=== PATIENT | male | born 1955 | race Caucasian/White ===

== ENCOUNTER 2021-02-11 10:03 | Day surgery (SDC) | payer OTHER, SELFPAY ==
[2021-02-03 10:30] VITALS: BMI 27.2
[2021-02-11 10:48] VITALS: BP 134/82; PULSE 59; RESP 16; TEMP 36.3; O2SAT 95
[2021-02-11] MEDS: Lactated Ringers 500 ML 20 ML IVCONT (11:00)
--- NOTE | 2021-02-11 11:07 | P.CONAN_ITS ---
[facility] Past Medical History Medical History COVID-19 vaccine series completed Elevated cholesterol Rosacea Functional capacity: independent ambulation Family History Family history of problems with anesthesia: No Surgical History Surgical History H/O colonoscopy Hx of arthroscopy of right knee History of Problems with Anesthesia: No Social History Social History Are you a primary acute care certified nursing assistant to a significant other at home: No Do you presently have visiting nurse or other home services: No Patient Tobacco Use Status: Never used Tobacco Use of substances other than those prescribed or required for medical reasons: Yes Substance Use Type Other:: advised to hold pre-op Substance Use Frequency: Occasionally Have you been hit, kicked, punched, or otherwise hurt by someone within the past year? If so, by whom?: No Are you DNR?: No Advance Directives: No Advance Directives Information Provided: Yes (as above noted) Advance Directives on File: No Recently lost weight without trying: No Eating poorly because of decreased appetite: No Nutrition Risks: No Nutritional Risk Poor oral hygiene: No (2 implants-upper right & lower left) Meds Allergies Allergy/AdvReac Type Severity Reaction Status Date / Time No Known Allergies Allergy Verified 02/03/21 10:10 Home Medications Medication Instructions Recorded Confirmed Last Taken Type diclofenac sodium 75 mg 75 mg PO BID PRN 02/03/21 02/03/21 Unknown History tablet,delayed release doxycycline hyclate 100 mg capsule 1 cap PO BID 02/03/21 02/03/21 Unknown History multivitamin 1 tab PO DAILY 02/03/21 02/03/21 Unknown History sildenafil 100 mg tablet 50 mg PO DAILY PRN 02/03/21 02/03/21 Unknown History Exam Exam Date and Time: February 11, 2021 1107 Height,Weight and Vital Signs: Height 5 ft 8 in Weight 81.193 kg Last Vital Signs Temp 97.4 F 02/11/21 10:48 Pulse 59 02/11/21 10:48 Resp 16 02/11/21 10:48 BP 134/82 02/11/21 10:48 Pulse Ox 95 02/11/21 10:48 Airway Mallampati Class: II TM Dist: >3cm Heart: RRR Lungs: CTA Assessment and Plan Final Anesthetic Review Family History of Problems with Anesthesia: No History of Problems with Anesthesia: No ASA Class: II Final Preanesthetic Review: No Changes in Pt Med Stat and Consent Obtained/Reviewed Anesthetic Plan Anesthetic Plan: MAC: Disposition: Standard PACU
--- NOTE | 2021-02-11 11:09 | HO.ANESPROP2 ---
[facility] Past Medical History Medical History COVID-19 vaccine series completed Elevated cholesterol Rosacea Functional capacity: independent ambulation Family History Family history of problems with anesthesia: No Surgical History Surgical History H/O colonoscopy Hx of arthroscopy of right knee History of Problems with Anesthesia: No Social History Social History Are you a primary ocular care aide to a significant other at home: No Do you presently have visiting nurse or other home services: No Patient Tobacco Use Status: Never used Tobacco Use of substances other than those prescribed or required for medical reasons: Yes Substance Use Type Other:: advised to hold pre-op Substance Use Frequency: Occasionally Have you been hit, kicked, punched, or otherwise hurt by someone within the past year? If so, by whom?: No Are you DNR?: No Advance Directives: No Advance Directives Information Provided: Yes (as above noted) Advance Directives on File: No Recently lost weight without trying: No Eating poorly because of decreased appetite: No Nutrition Risks: No Nutritional Risk Poor oral hygiene: No (2 implants-upper right & lower left) Meds Allergies Allergy/AdvReac Type Severity Reaction Status Date / Time No Known Allergies Allergy Verified 02/03/21 10:10 Active Medications: Current Medications Lactated Ringer's (Lr) 500 mls @ 20 mls/hr IVCONT .Q24H [facility] Home Medications Medication Instructions Recorded Confirmed Last Taken Type diclofenac sodium 75 mg 75 mg PO BID PRN 02/03/21 02/03/21 Unknown History tablet,delayed release doxycycline hyclate 100 mg capsule 1 cap PO BID 02/03/21 02/03/21 Unknown History multivitamin 1 tab PO DAILY 02/03/21 02/03/21 Unknown History sildenafil 100 mg tablet 50 mg PO DAILY PRN 02/03/21 02/03/21 Unknown History Exam Exam Date and Time: February 11, 2021 1109 Height,Weight and Vital Signs: Height 5 ft 8 in Weight 81.193 kg Last Vital Signs Temp 97.4 F 02/11/21 10:48 Pulse 59 02/11/21 10:48 Resp 16 02/11/21 10:48 BP 134/82 02/11/21 10:48 Pulse Ox 95 02/11/21 10:48 Assessment and Plan Final Anesthetic Review Family History of Problems with Anesthesia: No History of Problems with Anesthesia: No
--- NOTE | 2021-02-11 11:28 | MHC.SHP ---
Pre-Procedural Eval Section A Date of Service: 02/11/21 The patient is an INPATIENT: No Changes since office visit: No Cold of Flu in the past 2 weeks, No New Medical Problems, No Changes in Medication and No Patient answered all questions The History & Physical has been completed within 30 days and I have reviewed it.: Yes Section B Chief Complaint: screening Allergies: Allergies Allergy/AdvReac Type Severity Reaction Status Date / Time No Known Allergies Allergy Verified 02/03/21 10:10 Plan I have reviewed the history and physical and performed a pertinent physical examination on my patient. No changes have occurred unless specified.
[2021-02-11 12:05] VITALS: BP 88/60; PULSE 58; RESP 16; TEMP 36.4; O2SAT 95
--- NOTE | 2021-02-11 12:08 | P.BOP_ITS ---
Brief Operative Note Date of Service: 02/11/21 Pre-op diagnosis: screening Post-op diagnosis: same (colon polyps) Procedure: colonoscopy Surgeon: Jerel Garcia Anesthesia: MAC Was an Airport Attendant used for this Procedure?: No Estimated blood loss (mL): 2 Pathology: other (polyps icv, r colon x2, 60 cm) Condition: stable Disposition: PACU
[2021-02-11 12:20] VITALS: BP 98/61; PULSE 54; RESP 16; O2SAT 96
[2021-02-11 12:35] VITALS: BP 121/77; PULSE 59; RESP 16; TEMP 36.6; O2SAT 98
--- NOTE | 2021-02-11 12:47 | OP_ITS ---
SURGEON: Jerel Garcia MD INDICATIONS: Colon cancer screening and prior history of colon polyps. PREOPERATIVE DIAGNOSIS: POSTOPERATIVE DIAGNOSIS: PROCEDURE PERFORMED: Colonoscopy to the terminal ileum with biopsy and snare polypectomy. ESTIMATED BLOOD LOSS: COMPLICATIONS: ANESTHESIA: ASSISTANTS: SPECIMENS: MEDICATIONS: Monitored anesthesia care. DESCRIPTION OF PROCEDURE: History and physical performed. The risks and benefits of the procedure were explained to the patient. Informed consent was obtained. The patient was placed in the left lateral decubitus position. A digital rectal exam was performed and was found to be normal. The Olympus pediatric video colonoscope was introduced into the rectum and advanced to the cecum without difficulty. The cecum was identified by transillumination, palpation, and identification of ileocecal valve. Examination was performed. The scope was removed. He tolerated the procedure well and was transferred to recovery area in stable condition. FINDINGS: The terminal ileum was normal. The visualized colonic mucosa was normal. The quality of the prep was good. There was a less than 5 mm sessile polyp involving the ileocecal valve, which was removed with a biopsy forceps. In the right colon, there were 2 polyps 1 measuring 7 mm that was removed with a snare, second measuring less than 5 mm which was removed with a biopsy forceps. A final 6mm polyp was removed with a snare at 60 cm. Retroflexed examination showed internal hemorrhoids. IMPRESSION: Colon polyps. RECOMMENDATION: Follow up the biopsy results. MD TIFFANIE Guadarrama/RASHEEDA / [id number] MTDD
--- NOTE | 2021-02-11 14:06 | HO.POSTANES ---
Post Anesthesia Evaluation Post Anesthesia Evaluation Vital Signs: Vital Signs Temp Pulse Resp BP Pulse Ox 02/11/21 12:35 97.8 F 59 16 121/77 98 02/11/21 12:20 54 16 98/61 96 02/11/21 12:05 97.5 F 58 16 88/60 L 95 02/11/21 10:48 97.4 F 59 16 134/82 95 Anesthesia: Monitored Pain Control: Satisfactory Nausea/Vomiting: None Hydration: Adequate Anesthesia-Related Issues: No Anes. Related Issues
== END 2021-02-11 13:22 | disposition home or self-care (01) ==
PROVIDERS: Visit Provider Internal Medicine Gastroenterology
PROC: 0DJD8ZZ Inspection of Lower Intestinal Tract, Via Natural or Artificial Opening Endoscopic (ICD-10-PCS; CPT 45378; principal; 2021-02-11 11:20)
DX: Z12.11 Encounter for screening for malignant neoplasm of colon (principal); Z86.010 Personal history of colon polyps; D12.2 Benign neoplasm of ascending colon; D12.4 Benign neoplasm of descending colon; D12.0 Benign neoplasm of cecum; K64.8 Other hemorrhoids; E78.00 Pure hypercholesterolemia, unspecified; L71.9 Rosacea, unspecified; Z79.899 Other long term (current) drug therapy; Z79.1 Long term (current) use of non-steroidal anti-inflammatories (NSAID)
CPT/HCPCS: 45385; 45380; 88305

== ENCOUNTER 2024-02-27 12:26 | Day surgery (SDC) | payer OTHER, SELFPAY ==
--- NOTE | 2024-02-26 09:03 | P.CONAN_ITS ---
Documented by User: Rosi Prado NP 02/26/24 09:03 HPI - Anesthesia Eval Consult details Narrative: 68yo M for Upper Endoscopy and Colonoscopy [facility] Past Medical History Medical History COVID-19 vaccine series completed Elevated cholesterol Rosacea Family History Family history of problems with anesthesia: No Surgical History Surgical History H/O colonoscopy Hx of arthroscopy of right knee History of Problems with Anesthesia: No Social History Social History Are you a primary customer care manager to a significant other at home: No Do you presently have visiting nurse or other home services: No Patient Tobacco Use Status: Never used Tobacco Use of substances other than those prescribed or required for medical reasons: Yes Have you been hit, kicked, punched, or otherwise hurt by someone within the past year? If so, by whom?: No Are you DNR?: No Advance Directives: No Advance Directives Information Provided: Yes Recently lost weight without trying: No Meds Allergies Allergy/AdvReac Type Severity Reaction Status Date / Time No Known Allergies Allergy Verified 02/03/21 10:10 Home Medications ?Medication ?Instructions ?Recorded ?Confirmed ?Last Taken ?Type diclofenac sodium 75 mg 75 mg PO BID PRN Pain 02/03/21 02/03/21 Unknown History tablet,delayed release doxycycline hyclate 100 mg capsule 1 cap PO BID 02/03/21 02/03/21 Unknown History multivitamin 1 tab PO DAILY 02/03/21 02/03/21 Unknown History sildenafil 100 mg tablet 50 mg PO DAILY PRN Erectile 02/03/21 02/03/21 Unknown History Dysfunction Assessment and Plan Assessment Anesthesia Assessment: Chart Reviewed Final Anesthetic Review Family History of Problems with Anesthesia: No History of Problems with Anesthesia: No Documented by User: David Talbert MD 03/03/24 07:41 [facility] Past Medical History Medical History COVID-19 vaccine series completed Elevated cholesterol Rosacea Surgical History Surgical History H/O colonoscopy Hx of arthroscopy of right knee Social History Social History Are you a primary customer care manager to a significant other at home: No Do you presently have visiting nurse or other home services: No Patient Tobacco Use Status: Never used Tobacco Use of substances other than those prescribed or required for medical reasons: Yes Have you been hit, kicked, punched, or otherwise hurt by someone within the past year? If so, by whom?: No Are you DNR?: No Advance Directives: No Advance Directives Information Provided: Yes Recently lost weight without trying: No Meds Allergies Allergy/AdvReac Type Severity Reaction Status Date / Time No Known Allergies Allergy Verified 02/03/21 10:10 Home Medications ?Medication ?Instructions ?Recorded ?Confirmed ?Last Taken ?Type diclofenac sodium 75 mg 75 mg PO BID PRN Pain 02/03/21 02/03/21 Unknown History tablet,delayed release doxycycline hyclate 100 mg capsule 1 cap PO BID 02/03/21 02/03/21 Unknown History multivitamin 1 tab PO DAILY 02/03/21 02/03/21 Unknown History sildenafil 100 mg tablet 50 mg PO DAILY PRN Erectile 02/03/21 02/03/21 Unknown History Dysfunction Exam Airway Mallampati Class: II TM Dist: <=3cm Neck ROM: Full Heart: ok Lungs: ok Assessment and Plan Assessment Anesthesia Assessment: Anesthesia Plan Discussed Final Anesthetic Review NPO: Yes ASA Class: II Final Preanesthetic Review: No Changes in Pt Med Stat, Meds/Allgs Chart Reviewed, Consent Obtained/Reviewed and Anes Risks/Benef Reviewed Patient Risk: Low Procedure Risk: Intermediate Anesthetic Plan Anesthetic Plan: Agree w/ Assess. and Plan and TIVA Disposition: Standard PACU
[2024-02-27 13:23] VITALS: BP 143/79; PULSE 61; RESP 16; TEMP 36.7; O2SAT 98; BMI 25.2
[2024-02-27] MEDS: Lactated Ringers 1,000 ML 100 ML IVCONT (13:33)
[2024-02-27 15:03] VITALS: BP 99/68; PULSE 64; RESP 17; TEMP 36.6; O2SAT 94
[2024-02-27 15:27] VITALS: BP 107/74; PULSE 60; RESP 17; TEMP 36.1; O2SAT 99
--- NOTE | 2024-02-27 17:10 | OP_ITS ---
DATE OF SERVICE: 02/27/2024 SURGEON: Jerel Garcia MD INDICATIONS: 1. Gastroesophageal reflux disease. 2. Colon cancer screening. PREOPERATIVE DIAGNOSIS: POSTOPERATIVE DIAGNOSIS: PROCEDURE PERFORMED: Upper endoscopy with biopsy, colonoscopy to the terminal ileum with biopsy. ESTIMATED BLOOD LOSS: COMPLICATIONS: ANESTHESIA: Monitored anesthesia care. ASSISTANTS: SPECIMENS: DESCRIPTION OF PROCEDURE: A history and physical was performed. The risks and benefits of the procedure were explained to the patient. Informed consent was obtained. The patient was placed in the left lateral decubitus position. A digital rectal exam was performed and was found to be normal. The Olympus video gastroscope was introduced into the esophagus, stomach, and duodenum. Examination was performed. The scope was removed. He was repositioned for colonoscopy. The Olympus pediatric video colonoscope was introduced into the rectum and advanced to the cecum. The cecum was identified by transillumination, palpation, identification of ileocecal valve. Examination was performed. The scope was removed. He tolerated both procedures well, was returned to recovery area in stable condition. FINDINGS: Upper endoscopy: 1. Esophagus. The esophagus showed 2 erosions just above the EG junction measuring 1 cm and 1.5 cm. In the esophagus at 28 cm was a 3 mm nodule, which was biopsied and removed. 2. Stomach: Stomach showed no evidence of masses, ulcers, or polyps. Antral biopsies were obtained to evaluate for H pylori. 3. Duodenum. The bulb and 2nd portion were normal. Colonoscopy: The terminal ileum was examined and appeared normal. The visualized colonic mucosa was normal. In the cecum was a 3 mm polyp, which was removed with a biopsy forceps. There was some stool coating mucosa in the cecum, which was washed and suctioned. No other polyps were identified. Retroflexed examination showed moderate-sized internal hemorrhoids. IMPRESSION: 1. Erosive esophagitis. 2. Esophageal nodule. 3. Colon polyp. RECOMMENDATION: Follow up the biopsy results. MD TIFFANIE Guadarrama/RASHEEDA / [id number]
== END 2024-02-27 15:46 | disposition home or self-care (01) ==
PROVIDERS: PCP Internal Medicine; Visit Provider Internal Medicine Gastroenterology
PROC: (CPT 45380; principal; 2024-02-27 14:40)
DX: Z12.11 Encounter for screening for malignant neoplasm of colon (principal); Z86.0101 Personal history of adenomatous and serrated colon polyps; K63.5 Polyp of colon; K57.30 Diverticulosis of large intestine without perforation or abscess without bleeding; K64.8 Other hemorrhoids; K21.9 Gastro-esophageal reflux disease without esophagitis; K22.81 Esophageal polyp; K20.80 Other esophagitis without bleeding; E78.5 Hyperlipidemia, unspecified; L71.9 Rosacea, unspecified; Z79.899 Other long term (current) drug therapy; Z79.1 Long term (current) use of non-steroidal anti-inflammatories (NSAID); Z98.890 Other specified postprocedural states
CPT/HCPCS: 45380; 43239; 88305; 88313; 88342; J2003; J2704; J3010